=== PATIENT | male | born 1950 | race Caucasian/White ===

== ENCOUNTER → 2017-06-05 | Outpatient (CLI) | payer OTHER, BC ==
[~2017-06-05] MED LIST: ADVAIR 500/501 DISK IH; ALLEGRA ALLERG180 MG PO; FLONASE16 G1 BOTH NARES; LOSARTAN-HCTZ1 EAC1 PO; SINGULAIR10 MG PO; SPIRIVA18 MCG IH; VENTOLIN HFA18 GM IH; WELCHOL625 MG PO
== END | disposition home or self-care (01) ==
LOC: OPR 07:12 → EDSTATUS 08:00 → OPR 08:00
DX: R91.8 Other nonspecific abnormal finding of lung field (principal); N28.89 Other specified disorders of kidney and ureter; J95.830 Postprocedural hemorrhage of a respiratory system organ or structure following a respiratory system procedure; I10 Essential (primary) hypertension; G47.33 Obstructive sleep apnea (adult) (pediatric); Z87.891 Personal history of nicotine dependence
CPT/HCPCS: 71045; 77012; 88305; J3010